=== PATIENT | female | born 1980 | race Caucasian/White ===

== ENCOUNTER 2018-10-28 09:49 | Emergency (ER) | payer MEDICARE, MEDICAID ==
[2018-10-28] MEDS ORDERED: Amoxicillin/Clavulanate K 875-125 MG Tab PO ONE (09:50)
--- NOTE | 2018-10-28 10:02 | EDM.PDOC ---
ED HPI GENERAL MEDICAL PROBLEM - General Chief Complaint: General Stated Complaint: swollen right cheek Time Seen by Provider: 10/28/18 09:54 Source of Information: Reports: Patient, Family - History of Present Illness INITIAL COMMENTS - FREE TEXT/NARRATIVE: Patient woke this am with right sided cheek swelling and pain. rates pain a 5/ 10 and its constant nonradiating. and throbbing in nature. denies fever or chills. Onset: Today Onset Date: 10/28/18 Onset Time: 07:00 Duration: Hour(s): Location: Reports: Face Quality: Reports: Ache, Throbbing Severity: Mild Improves with: Reports: None Worsens with: Reports: None Right Cheek Pain Score (Numeric/FACES): 5 - Related Data Allergies Allergy/AdvReac Type Severity Reaction Status Date / Time No Known Allergies Allergy Verified 10/28/18 09:55 Home Meds: Home Meds . [No Known Home Meds] 10/28/18 [History] Past Medical History - History Comment History Comment: reviewed and agree [facility] nursing assesement. Social & Family History - Living Situation & Occupation Living situation: Reports: Single, Alone (all social and family history reviewed adn agree with nursing assessment.) ED ROS GENERAL - Review of Systems Review Of Systems: See Below Constitutional: Reports: No Symptoms HEENT: Reports: Dental Pain, Other (multiple dental caries) Respiratory: Reports: No Symptoms Cardiovascular: Reports: No Symptoms : Reports: No Symptoms Musculoskeletal: Reports: No Symptoms Skin: Reports: Erythema, Other (right cheek) Neurological: Reports: No Symptoms ED EXAM, GENERAL - Physical Exam Exam: See Below Exam Limited By: No Limitations General Appearance: Alert, WD/WN, No Apparent Distress Ears: Normal External Exam, Normal Canal, Hearing Grossly Normal, Normal TMs Nose: Normal Inspection, Normal Mucosa, No Blood Throat/Mouth: Normal Oropharynx, Normal Voice, No Airway Compromise, Other ( right upper dental caries/ with swellng and redness to the upper gum with swellng. ) Neck: Normal Inspection, Supple, Non-Tender Respiratory/Chest: No Respiratory Distress, Lungs Clear, Normal Breath Sounds Cardiovascular: Normal Peripheral Pulses, Regular Rate, Rhythm Extremities: Normal Inspection Neurological: Alert, Oriented Psychiatric: Normal Affect, Normal Mood Skin Exam: Warm, Dry, Intact, Erythema (over the right cheek) Course - Re-Assessments/Exams Free Text/Narrative Re-Assessment/Exam: 10/28/18 10:05 Patient will be started on Augmentin with a take home pack treated for temp of 100.7 F oral temperature. with Motrin for pain and fever. Patient will be given RX for augmentin and will see dentist ERNIE 10/28/18 10:10 Departure - Departure Time of Disposition: 10:18 Disposition: Home, Self-Care 01 Condition: Good Clinical Impression: Dental abscess - Discharge Information *PRESCRIPTION DRUG MONITORING PROGRAM REVIEWED*: No *COPY OF PRESCRIPTION DRUG MONITORING REPORT IN PATIENT SARWAT: No Instructions: Dental Abscess, [id number] Additional Instructions: Take antibiotics till gone Use tylenol and motrin for pain and fever. See Dentist ERNIE Return for any difficulty breathing or swallowing.
[2018-10-28] MEDS ORDERED: Ibuprofen 200 MG Tab PO ONE (10:07)
[2018-10-28] MEDS ORDERED: Take Home: Amoxicillin/Clavulanate K 875-125 MG Tab, 2 Tab Pack PO ONE (10:08)
== END 2018-10-28 10:43 | disposition home or self-care (01) ==
LOC: CC.ED 09:49
DX: K04.7 Periapical abscess without sinus (principal)
CPT/HCPCS: 99283; A9270-GY